=== PATIENT | male | born 1955 | race American Indian/Alaskan Native ===

== ENCOUNTER 2016-04-27 08:55 | Outpatient (CLI) | payer MEDICARE ==
--- NOTE | 2016-04-27 10:51 | Ultrasound Report ---
RIGHT UPPER QUADRANT ULTRASOUND: HISTORY: Right upper quadrant pain. Technique: Transabdominal ultrasound imaging with Doppler interrogation. FINDINGS: There appears to be a small amount of sludge in the gallbladder. No shadowing stones or abnormal dilatation. The CBD measures 5 mm. The liver is poorly imaged secondary to body habitus. No obvious liver parenchymal disease or mass. Images of the pancreas, right kidney and aorta are within normal limits. No perihepatic ascites. IMPRESSION: Small amount of sludge in the gallbladder. No biliary dilatation.
[2016-04-27] MEDS ORDERED: KINEVAC IV ONE (10:57)
[2016-04-27] MEDS ORDERED: WATER FOR INJ (PF) IV SCH (11:00)
--- NOTE | 2016-04-27 13:14 | Nuclear Medicine Report ---
HEPATOBILIARY SCAN: History: Right upper quadrant abdominal pain. Following the injection of the radionuclide, serial scanning was obtained over the right upper quadrant. Initial imaging of the liver demonstrates a relatively normal activity pattern. Progressive concentration of the radionuclide in the bile ducts, with filling of both the gallbladder and small bowel, is identified within a normal time period. The gallbladder ejection fraction is within normal limits measuring 44%. The patient reports original symptoms were reproduced during the infusion of CCK. IMPRESSION: The cystic duct is patent. Normal gallbladder ejection fraction.
== END 2016-04-27 08:56 | disposition home or self-care (01) ==
LOC: US 08:55
PROVIDERS: ATTEND Internal Medicine
DX: R10.11 Right upper quadrant pain (principal)
CPT/HCPCS: 76705; 78227; A9537; J2805

== ENCOUNTER 2016-05-19 10:10 | Outpatient (CLI) | payer MEDICARE ==
--- NOTE | 2016-05-20 10:01 | Cat Scan Report ---
CT OF THE ABDOMEN WITH ORAL CONTRAST: The study was ordered with intravenous contrast, but this was not given due to patient's elevated creatinine of 1.9. HISTORY: Right upper quadrant pain. FINDINGS: The liver, spleen, and gallbladder appear normal. The kidneys are normal in size and configuration. A subcentimeter hypodensity in the upper pole of the left kidney is probably a small cyst. There are no other renal abnormalities. The pancreas is mildly atrophic but otherwise unremarkable. Nonenlarged nodes are seen in the left periaortic region. There are no pelvic masses or abnormal fluid collections. No mesenteric inflammation is seen. There is no evidence of appendicitis. A large volume of stool is seen throughout the colon. IMPRESSION: 1. No acute findings. 2. Probable small left renal cyst. 3. Constipation.
== END 2016-05-19 10:11 | disposition home or self-care (01) ==
LOC: CT 10:10
PROVIDERS: ATTEND Internal Medicine
DX: K59.00 Constipation, unspecified (principal); K86.89 Other specified diseases of pancreas
CPT/HCPCS: 36415; 74176; 82565; 84520

== ENCOUNTER 2016-06-17 09:02 | Day surgery (SDC) | payer MEDICARE ==
[~2016-06-17 09:02] MED LIST: MYDRIACYL ONE; PRED FORTE 1% ONE; TETRACAINE 0.5% OD PRN
[2016-06-17] MEDS: MYDRIACYL OD SCH ×3 (10:05→10:15)
[2016-06-17] MEDS: VIGAMOX OD SCH ×3 (10:05→10:15)
[2016-06-17] MEDS: AK-Dilate OD SCH ×3 (10:05→10:15)
[2016-06-17] MEDS ORDERED: VERSED ONE (10:19)
[2016-06-17] MEDS ORDERED: SUBLIMAZE ONE (10:19)
--- NOTE | 2016-06-17 10:35 | Anesthesia Consultation ---
Anesthesia Consult and Med Hx Date of service: 06/17/16 - Airway Anesthetic Teeth Evaluation: Dentures, Edentulous ROM Head & Neck: Adequate Mental/Hyoid Distance: Adequate Mallampati Class: Class II Intubation Access Assessment: Probably Good - Pulmonary Exam CTA: Yes - Cardiac Exam Cardiac Exam: RRR - Pre-Operative Health Status ASA Pre-Surgery Classification: ASA3 Proposed Anesthetic Plan: MAC - Cardiovascular System Hx Hypertension: Yes - Endocrine Hx Non-Insulin Dependent Diabetes: Yes - Other Systems Hx Cancer: No Hx Obesity: Yes (BMI 33.1)
--- NOTE | 2016-06-17 10:35 | Anesthesia Day of Surgery ---
Anesthesia Day of Surgery - Day of Surgery Patient Examined: Yes Patient H&P Reviewed: Yes Patient is NPO: Yes
[2016-06-17] MEDS ORDERED: DIPRIVAN 10 MG/ML IV ONE (10:54)
[2016-06-17] MEDS ORDERED: WATER FOR IRRIG STERILE IR ONE (11:06)
--- NOTE | 2016-06-17 11:36 | Operative Report ---
Operative Report Operative Report: PATIENT'S NAME: DATE OF : DATE OF SURGERY: 06/17/2016 PREOPERATIVE DIAGNOSIS: Cataract right eye POSTOPERATIVE DIAGNOSIS: Same OPERATIVE PROCEDURE: Phacoemulsification with intraocular lens implantation, right eye SURGEON: Carmen Richter M.D. SUPERVISOR GEAR REPAIR SURGEON: Perry Lens: AO60 16.5 D ANESTHESIA: Monitored anesthesia care in combination with topical and intracameral anesthesia because of the established specific risk of reflux, arrhythmias, or anxiety attacks associated with ocular manipulation, as well as the difficulty of the fireproof door assembler to manage such potentially catastrophic events while simultaneously attempting to complete the surgical procedure and was deemed necessary for the patient's safety to have an Corporate Training Manager present during the procedure whenever possible. An Corporate Training Manager was utilized to regulate the intravenous sedation of the patient so the patient was cooperative yet not asleep in order for the patient to successfully maintain fixation of the eye on the operating light of the microscope. COMPLICATIONS: No surgical complications No blood loss. ALLERGIES: No known drug allergies PROGNOSIS: Excellent INDICATIONS FOR SURGERY: The patient is undergoing surgery in the hopes of eliminating or improving these visual difficulties. PROCEDURE: After arriving at the surgery center, the patient was given topical anesthetic and dilating drops, as noted in the record. The patient was then taken into the operating room and given more anesthetic drops. The eyelids , lashes, and lid margins were scrubbed with Betadine solution, and the patient was draped. The Nurse Corporate Training Manager administered IV sedation and monitored the patient during the procedure. The eye was then fixated with a 0.12, and a stab incision was made in the peripheral clear cornea into the anterior chamber. This was made on my left side. Viscoelastic was next used to fill the anterior chamber. The eye was once again fixated with the 0.12 forceps and a keratome was used make an incision in clear cornea peripherally on my right hand side temporally. The capsule forceps were used to open the central anterior capsule and then make a continuous round capsulotomy. Hydrodissection was carried out utilizing a cannula and balanced salt solution to delineate the cortical material from the capsule and the nucleus from the cortical material. The phaco tip was introduced into the eye and used to remove the anterior cortical material in the area of the capsulotomy. Then the phaco tip was buried into the nucleus, and a chopping instrument was introduced into the eye and used to provide countertraction in the nucleus between this instrument and the phaco tip fracturing the nucleus. This procedure was repeated multiple times, providing multiple small segments of the lens, and then the phaco tip was used to remove each of these segments. An I/A tip was then used to remove the remaining cortex. The anterior chamber was refilled with viscoelastic. An one-piece, acrylic intraocular lens was then placed into an inserting cartridge. The tip of the inserting cartridge was introduced into the keratome incision and into the anterior chamber. The implant was gently advanced through the cartridge and into the eye, where it unfolded, and both haptics were placed in the capsular bag, where it centered nicely and appeared to be well fixated. After placement of the intraocular lens, the I~and~A handpiece was placed back into the eye and used to remove the viscoelastic, including viscoelastic that was behind the optic of the intraocular lens. The anterior chamber was then filled with balanced salt solution, and hydration of the wound was used to cause swelling of the wound and more appropriate watertight closure. When the wound was found to be firm, the patient was asked to comment on how bright the light was. If there was no light perception at all or if the light was substantially dimmer than during the rest of the surgery, the amount of fluid in the eye was decompressed to lower the intraocular pressure until the patient could see the bright light again. This was done to avoid any damage or decreased blood flow to the optic nerve. MEDICATIONS APPLIED AT END OF SURGERY: One drop of Pred Forte and Vigamox The patient was given a shield to wear at night and was instructed not to rub or push on the eye. DISCHARGE SUMMARY: The patient was released in stable condition. The patient and those with the patient were given a written sheet of postoperative instructions and counseling on any abnormal laboratory studies. The patient is to see us tomorrow for follow-up in the office and is to call immediately for any difficulties. Carmen Richter M.D. Date
--- NOTE | 2016-06-17 11:38 | Short Stay Summary ---
Short Stay Documentation Date of service: 06/17/16 - History H&P: obtained from office - Allergies and Medications Current Medications: Allergies No Known Allergies Allergy (Verified 06/16/16 10:42) Home Medications Medication Instructions Recorded Confirmed Last Taken Type Gabapentin [Neurontin] 300 mg PO Q8HR #90 capsule 08/24/15 06/16/16 Unknown Rx AtorvaSTATin [Lipitor] 20 mg PO QHS 01/28/16 06/16/16 Unknown History Ergocalciferol(Vitamin D2)(Nf) 50,000 unit PO QWEEK 01/28/16 06/16/16 Unknown History [Vitamin D (Nf)] Insulin Lispro Prot/Lispro 0 unit SQ QACHS 01/28/16 06/16/16 Unknown History [HumaLOG Mix 75/25 Vial] Tamsulosin [Flomax] 0.4 mg PO QHS 01/28/16 06/16/16 Unknown History Valsartan/Hydrochlorothiazide 1 tab PO QDAY 01/28/16 06/16/16 Unknown History [Diovan Hct 160-12.5 mg] amLODIPine [Norvasc] 5 mg PO DAILY 01/28/16 06/16/16 Unknown History metFORMIN [Glucophage] 1,000 mg PO QDAY 01/28/16 06/16/16 Unknown History hydrALAZINE [Apresoline TAB] 50 mg PO Q8HR #90 tablet 01/31/16 06/16/16 Unknown Rx Clindamycin [Clindamycin CAP] 300 mg PO Q8H #40 cap 03/31/16 06/16/16 Unknown Rx Ibuprofen [Motrin] 600 mg PO Q8H PRN #20 tablet 03/31/16 06/16/16 Unknown Rx Active Medications Moxifloxacin HCl (Vigamox) 1 drops OD Q5MIN BRII Stop: 06/17/16 18:00 Last Admin: 06/17/16 10:15 Dose: 1 drops Phenylephrine HCl (Ak-Dilate) 1 drops OD Q5MIN BRII Stop: 06/19/16 18:00 Last Admin: 06/17/16 10:15 Dose: 1 drops Tetracaine HCl (Tetracaine 0.5%) 1 drops OD Q5M PRN PRN Reason: Analgesia Last Admin: 06/17/16 10:04 Dose: 1 drops Tropicamide (Mydriacyl) 1 drops OD Q5MIN BRII Stop: 06/17/16 18:00 Last Admin: 06/17/16 10:15 Dose: 1 drops - Brief post op/procedure progress note Date of procedure: 06/17/16 Pre-op diagnosis: right cataract Post-op diagnosis: same Procedure: Phacoemulsification with intraocular lens insertion right eye Anesthesia: MAC Surgeon: LUIGI XIAO Estimated blood loss: none Pathology: none Condition: stable - Disposition Condition at discharge: Good Disposition: DISCHARGED TO HOME OR SELFCARE - Discharge Diagnoses (1) Cataract Status: Resolved Short Stay Discharge Plan Follow up with: WADE PRYOR MD [Primary Care Provider] - 7 Days
[2016-06-17 12:51] VITALS: BP 190/94
--- NOTE | 2016-06-17 13:55 | Post Anesthesia Evaluation ---
- Post Anesthesia Evaluation Patient Participated: Yes Airway Patent: Yes Stable Respiratory Function: Yes Nausea/Vomiting: No Temp > 96.8F: Yes Pain Manageable: Yes Adequeate Hydration: Yes Anesthesia Complications: No Block Receding Appropriately: Not Applicable Patient on Ventilator: No
[2016-06-17] MEDS ORDERED: PRED FORTE 1% OU SCH (14:00)
== END 2016-06-17 12:30 | disposition home or self-care (01) ==
LOC: OR 09:02
DX: E11.36 Type 2 diabetes mellitus with diabetic cataract (principal); J44.9 Chronic obstructive pulmonary disease, unspecified; I11.0 Hypertensive heart disease with heart failure; I50.9 Heart failure, unspecified; E66.9 Obesity, unspecified; Z68.33 Body mass index [BMI] 33.0-33.9, adult; Z79.899 Other long term (current) drug therapy; Z79.84 Long term (current) use of oral hypoglycemic drugs; Z86.79 Personal history of other diseases of the circulatory system
CPT/HCPCS: 66984; 82962; J2250; J2704; J3010; V2632

== ENCOUNTER 2016-08-11 15:52 | Emergency (ER) | payer MEDICARE ==
--- NOTE | 2016-08-11 23:03 | Emergency Department Report ---
HPI - General Chief Complaint: Wound/Laceration Time Seen by Provider: 08/11/16 22:08 - HPI HPI: This is a 61-year-old Afro-Citizen Of [place] male presents the emergency department from home with complaint of a chronic diabetic wound to the right foot that going on for "a long time." Patient says that his home health care nurse who usually helps with wound care and dressing changes "quit" and therefore the patient has not had a dressing change and about 3 weeks. He denies any significant discomfort or any bleeding or discharge but does say that it "stinks". He also complains of some swelling to that right lower extremity as well. He has not taken anything for symptoms prior to presentation. His primary care doctor is Dr. Mark Pina but has not seen him recently regarding the symptoms. He has a history of CHF, COPD, diabetes, hypertension. No history of previous DVT. No recent travel or sick contacts at home. ED Past Medical Hx - Past Medical History Hx Hypertension: Yes Hx Congestive Heart Failure: Yes Hx Diabetes: Yes Hx COPD: Yes Hx HIV: No Additional medical history: Elevated cholesterol - Surgical History Additional Surgical History: Right knee surgery after a fracture. left knee surgery - Social History Smoking Status: Never Smoker Substance Use Type: None - Medications Home Medications: Home Medications Medication Instructions Recorded Confirmed Last Taken Type Gabapentin [Neurontin] 300 mg PO Q8HR #90 capsule 08/24/15 06/16/16 Unknown Rx AtorvaSTATin [Lipitor] 20 mg PO QHS 01/28/16 06/16/16 Unknown History Ergocalciferol(Vitamin D2)(Nf) 50,000 unit PO QWEEK 01/28/16 06/16/16 Unknown History [Vitamin D (Nf)] Insulin Lispro Prot/Lispro 0 unit SQ QACHS 01/28/16 06/16/16 Unknown History [HumaLOG Mix 75/25 Vial] Tamsulosin [Flomax] 0.4 mg PO QHS 01/28/16 06/16/16 Unknown History Valsartan/Hydrochlorothiazide 1 tab PO QDAY 01/28/16 06/16/16 Unknown History [Diovan Hct 160-12.5 mg] amLODIPine [Norvasc] 5 mg PO DAILY 01/28/16 06/16/16 Unknown History metFORMIN [Glucophage] 1,000 mg PO QDAY 01/28/16 06/16/16 Unknown History hydrALAZINE [Apresoline TAB] 50 mg PO Q8HR #90 tablet 01/31/16 06/16/16 Unknown Rx Clindamycin [Clindamycin CAP] 300 mg PO Q8H #40 cap 03/31/16 06/16/16 Unknown Rx Ibuprofen [Motrin] 600 mg PO Q8H PRN #20 tablet 03/31/16 06/16/16 Unknown Rx ED Review of Systems ROS: Stated complaint: RT FOOT PAIN Other details as noted in HPI Comment: All other systems reviewed and negative Constitutional: denies: chills, fever Eyes: denies: eye pain, eye discharge, vision change ENT: denies: ear pain, throat pain Respiratory: denies: cough, shortness of breath, wheezing Cardiovascular: denies: chest pain, palpitations Gastrointestinal: denies: abdominal pain, nausea, diarrhea Genitourinary: denies: urgency, dysuria Musculoskeletal: joint swelling, arthralgia Skin: other (chronic wound). denies: pruritus Neurological: denies: headache, weakness, paresthesias Physical Exam - Physical Exam Vital Signs: Vital Signs 08/11/16 17:42 Temperature 98.8 F Pulse Rate 77 Respiratory 19 Rate Blood Pressure 160/82 O2 Sat by Pulse 100 Oximetry Physical Exam: GENERAL: The patient is well-developed well-nourished. HEENT: Normocephalic. Atraumatic. Extraocular motions are intact. Patient has moist mucous membranes. Pupils equal reactive to light bilaterally. NECK: Supple. Trachea is midline. CHEST/LUNGS: Clear to auscultation. There is no respiratory distress noted. HEART/CARDIOVASCULAR: Regular. There is no tachycardia. There is no gallop rub or murmur. ABDOMEN: Abdomen is soft, nontender. Patient has normal bowel sounds. There is no abdominal distention. SKIN: There is nonpitting swelling to the right lower extremity from the knee distally. There appears to be chronic ulcerations to the right lateral posterior foot as well as to the plantar heel. No current bleeding, weeping, purulent drainage. The ulcers appeared to be chronic and/or healing. He has onychomycosis of the toenails. NEURO: The patient is awake, alert, and oriented. The patient is cooperative. The patient has no focal neurologic deficits. The patient has normal speech. MUSCULOSKELETAL: There is no tenderness or deformity. There is no limitation range of motion. There is no evidence of acute injury. Pedal pulses intact. ED Course Vital Signs 08/11/16 17:42 Temperature 98.8 F Pulse Rate 77 Respiratory 19 Rate Blood Pressure 160/82 O2 Sat by Pulse 100 Oximetry ED Medical Decision Making - Lab Data Result diagrams: 08/11/16 23:01 08/11/16 23:01 - Radiology Data Radiology results: image reviewed interpreted by me: X-ray of the right foot does not show any fracture, dislocations or any signs of osteomyelitis. - Medical Decision Making 61-year-old male presents with the need for a dressing change to the right lower extremity where he has had a dressing for the past 3 weeks. Patient has a history of chronic ulcerations to that right lower extremity. X-ray was done that did not show any signs of osteomyelitis. Patient's labs show some abnormalities however. The CBC is okay without any significant leukocytosis or anemia. However the metabolic panel shows hypokalemia with potassium of 5.9 and some hyperglycemia. The plan was going to be to admit the patient to hospital after giving him the hyperkalemia cocktail. The patient also needs a right lower extremity venous Doppler to rule out a DVT with the right lower extremity swelling that was seen. However the patient refuses to be admitted. I spoke to him in great detail and let him know that there is risks involved with leaving with hyperkalemia as well as if the patient has a possible DVT. The patient is AAO 3 and of sound mind and still refuses to be admitted. He also refused IV access for insulin, D50 for treatment of his hyperkalemia. I was unable to convince the patient's stay so I still wrote him for a outpatient venous Doppler and treated him for his hyperkalemia to the best of my ability before allowing him to sign out AGAINST MEDICAL ADVICE. - Differential Diagnosis hyperkalemia, DVT, cellulitis, diabetic ulcer, DKA Critical Care Time: No Critical care attestation.: If time is entered above; I have spent that time in minutes in the direct care of this critically ill patient, excluding procedure time. ED Disposition Clinical Impression: Hyperkalemia, Hyperglycemia Diabetic foot ulcer Qualifiers: Diabetic foot ulcer location: heel Diabetes mellitus type: type 1 Laterality: right Non-pressure ulcer stage: with fat layer exposed Qualified Code(s): E10.621 - Type 1 diabetes mellitus with foot ulcer Hypertension Qualifiers: Hypertension type: essential hypertension Qualified Code(s): I10 - Essential ( primary) hypertension Disposition: LEFT AGAINST MEDICAL ADVICE Is pt being admited?: No Condition: Stable Instructions: Diabetes Mellitus Type 2 in Adults (ED), Hyperkalemia (ED), Hypertension (ED) Additional Instructions: Please return to the emergency department immediately if you change your mind about admission and further treatment. Despite the fact that you are leaving AGAINST MEDICAL ADVICE, I'm giving him an order form to go to outpatient imaging for a right lower extremity venous Doppler to rule out a blood clot. Referrals: MARK PINA MD [Primary Care Provider] - [place] Forms: AMA Form Time of Disposition: 00:31
[2016-08-11 23:12] LABS: Basophils % (Auto) 0.9 % (0.0-1.8); Eosinophils % (Auto) 5.3 % (0.0-4.3); Hematocrit 28.5 % (35.5-45.6); Hemoglobin 9.3 gm/dl (11.8-15.2); Mean Corpuscular HGB Conc 33 % (32-34); Mean Corpuscular Hemoglobin 29 pg (28-32); Mean Corpuscular Volume 89 fl (84-94); Platelet Count 191 K/mm3 (140-440); Red Blood Count 3.19 M/mm3 (3.65-5.03); Red Cell Distribution Width 14.5 % (13.2-15.2); White Blood Count 7.2 K/mm3 (4.5-11.0)
[2016-08-11 23:32] LABS: Anion Gap 18 mmol/L; BUN/Creatinine Ratio 22.14; Blood Urea Nitrogen 31 mg/dL (9-20); Calcium 8.4 mg/dL (8.4-10.2); Carbon Dioxide 17 mmol/L (22-30); Chloride 108.5 mmol/L (98-107); Glucose 223 mg/dL (75-100); Potassium 5.9 mmol/L (3.6-5.0); Sodium 138 mmol/L (137-145)
[2016-08-11] MEDS ORDERED: PROVENTIL IH ONE (23:35)
[2016-08-11] MEDS ORDERED: D50W (25GM) IV ONE (23:35)
[2016-08-11] MEDS ORDERED: KIONEX PO ONE (23:36)
[2016-08-12 01:06] VITALS: BP 177/79
--- NOTE | 2016-08-12 09:55 | XRay Report ---
RIGHT FOOT, 3 VIEWS History: Right foot pain, wound. Findings: Soft tissue ulceration is suspected in the lateral heel region. There are mild osteoarthritic changes throughout the foot but no evidence for fracture, bone lesion or bony destruction. There is mild diffuse soft tissue swelling or edema. No soft tissue gas. Diffuse vascular calcifications are noted consistent with diabetes or peripheral vascular disease. Impression: Soft tissue ulceration as described. No evidence for osteomyelitis. Mild degenerative changes.
== END 2016-08-12 01:36 | disposition left against medical advice (07) ==
LOC: ED 15:52
DX: E11.621 Type 2 diabetes mellitus with foot ulcer (principal); E87.5 Hyperkalemia; E11.65 Type 2 diabetes mellitus with hyperglycemia; I10 Essential (primary) hypertension; I50.9 Heart failure, unspecified; J44.9 Chronic obstructive pulmonary disease, unspecified; E78.00 Pure hypercholesterolemia, unspecified; Z79.4 Long term (current) use of insulin
CPT/HCPCS: 36415; 80048; 83880; 85025; 94640; 96374; 96375; J1815

== ENCOUNTER 2016-09-09 09:54 | Outpatient (CLI) | payer MEDICARE ==
[2016-09-09] MEDS ORDERED: XYLOCAINE TOPICAL 4% TP ONE (12:00)
== END 2016-09-09 09:55 | disposition home or self-care (01) ==
LOC: EDBD → WOUND 09:54
PROVIDERS: ATTEND Nurse Practitioner
DX: E11.621 Type 2 diabetes mellitus with foot ulcer (principal); L97.411 Non-pressure chronic ulcer of right heel and midfoot limited to breakdown of skin; E11.40 Type 2 diabetes mellitus with diabetic neuropathy, unspecified; I10 Essential (primary) hypertension; E11.36 Type 2 diabetes mellitus with diabetic cataract; Z87.891 Personal history of nicotine dependence
CPT/HCPCS: 11042; 82962; G0463; 99212

== ENCOUNTER 2016-09-13 12:45 | Outpatient (CLI) | payer MEDICARE ==
[2016-09-13] MEDS ORDERED: XYLOCAINE TOPICAL 2% ONE (14:02)
[2016-09-13] MEDS ORDERED: XYLOCAINE TOPICAL 2% TP ONE (16:26)
== END 2016-09-13 12:46 | disposition home or self-care (01) ==
LOC: WOUND 12:45
PROVIDERS: ATTEND Internal Medicine
DX: E11.621 Type 2 diabetes mellitus with foot ulcer (principal); L97.411 Non-pressure chronic ulcer of right heel and midfoot limited to breakdown of skin; E11.36 Type 2 diabetes mellitus with diabetic cataract; E11.40 Type 2 diabetes mellitus with diabetic neuropathy, unspecified; I10 Essential (primary) hypertension; Z87.891 Personal history of nicotine dependence
CPT/HCPCS: 99214; G0463

== ENCOUNTER 2016-09-16 10:53 | Outpatient (CLI) | payer MEDICARE ==
[2016-09-16] MEDS ORDERED: XYLOCAINE TOPICAL 4% TP ONE ×2 (11:56→16:03)
== END 2016-09-16 10:54 | disposition home or self-care (01) ==
LOC: WOUND 10:53
PROVIDERS: ATTEND Nurse Practitioner
DX: E11.621 Type 2 diabetes mellitus with foot ulcer (principal); L97.411 Non-pressure chronic ulcer of right heel and midfoot limited to breakdown of skin; E11.36 Type 2 diabetes mellitus with diabetic cataract; E11.40 Type 2 diabetes mellitus with diabetic neuropathy, unspecified; L84 Corns and callosities; B35.1 Tinea unguium; I10 Essential (primary) hypertension; Z87.891 Personal history of nicotine dependence
CPT/HCPCS: 11055; 11719; 82962

== ENCOUNTER 2016-09-23 11:19 | Outpatient (CLI) | payer MEDICARE | END 2016-09-23 11:20 | disposition home or self-care (01) | LOC: WOUND 11:19 | PROVIDERS: ATTEND Nurse Practitioner | DX: E11.621 Type 2 diabetes mellitus with foot ulcer (principal); L97.411 Non-pressure chronic ulcer of right heel and midfoot limited to breakdown of skin; E11.40 Type 2 diabetes mellitus with diabetic neuropathy, unspecified; E11.36 Type 2 diabetes mellitus with diabetic cataract; B35.3 Tinea pedis; L84 Corns and callosities; I10 Essential (primary) hypertension; Z87.891 Personal history of nicotine dependence | CPT/HCPCS: 82962; G0463; 99213 ==

== ENCOUNTER 2016-12-23 09:46 | Outpatient (CLI) | payer MEDICARE ==
[2016-12-23] MEDS ORDERED: XYLOCAINE TOPICAL 4% TP ONE ×2 (10:51→12:06)
[2016-12-23] MEDS ORDERED: THERMAZENE 50 GRAM TP ONE (12:23)
[2016-12-24] MEDS ORDERED: THERMAZENE 50 GRAM TP SCH (10:00)
== END 2016-12-23 09:47 | disposition home or self-care (01) ==
LOC: EDBD → WOUND 09:46
PROVIDERS: ATTEND Nurse Practitioner
DX: I70.234 Atherosclerosis of native arteries of right leg with ulceration of heel and midfoot (principal); E11.621 Type 2 diabetes mellitus with foot ulcer; L97.411 Non-pressure chronic ulcer of right heel and midfoot limited to breakdown of skin; L97.521 Non-pressure chronic ulcer of other part of left foot limited to breakdown of skin; I11.0 Hypertensive heart disease with heart failure; I50.9 Heart failure, unspecified; E87.5 Hyperkalemia; E11.51 Type 2 diabetes mellitus with diabetic peripheral angiopathy without gangrene; E78.5 Hyperlipidemia, unspecified; E11.42 Type 2 diabetes mellitus with diabetic polyneuropathy; J44.9 Chronic obstructive pulmonary disease, unspecified; Z86.718 Personal history of other venous thrombosis and embolism; Z87.891 Personal history of nicotine dependence
CPT/HCPCS: 11042; 11045; 11055; 87075; 87076; 87116; 87186; G0463

== ENCOUNTER 2016-12-30 01:49 | Inpatient (IN) | payer MEDICARE ==
[2016-12-30 02:57] LABS: Eosinophils % (Auto) 4.4 % (0.0-4.3); Hematocrit 28.8 % (35.5-45.6); Hemoglobin 9.3 gm/dl (11.8-15.2); Mean Corpuscular HGB Conc 32 % (32-34); Mean Corpuscular Hemoglobin 28 pg (28-32); Mean Corpuscular Volume 87 fl (84-94); Platelet Count 328 K/mm3 (140-440); Red Blood Count 3.33 M/mm3 (3.65-5.03); Red Cell Distribution Width 13.6 % (13.2-15.2); White Blood Count 8.6 K/mm3 (4.5-11.0)
[2016-12-30 03:05] LABS: Calcium 9.2 mg/dL (8.4-10.2); Chloride 102.5 mmol/L (98-107); Potassium 4.9 mmol/L (3.6-5.0)
[2016-12-30 11:09] LABS: Bilirubin,Urine NEG (Negative); Blood,Urine NEG (Negative); Ketones,Urine NEG (Negative); Leukocyte Esterase,Urine NEG (Negative); Mucus,Urine FEW /HPF; Nitrite,Urine NEG (Negative); Urobilinogen,Urine < 2.0 mg/dL (<2.0)
--- NOTE | 2016-12-30 13:20 | Emergency Department Report ---
ED Extremity Problem HPI - General Chief complaint: Extremity Problem,Nontraumatic Stated complaint: SORES ON LEG Time Seen by Provider: 12/30/16 11:32 Source: patient, old records reviewed Mode of arrival: Wheelchair Limitations: No Limitations - History of Present Illness Initial comments: 61-year-old male with a past medical history of CHF, COPD, DVT, diabetes, hypertension and elevated cholesterol presents to the hospital complaining of "ants biting him on his legs and legs". Patient is a very poor historian and is sleeping intermittently and not providing any further details. Right foot pain rated 8/10 in intensity. Previous medical record review. Patient was admitted here twice this month and left AMA both times. Last admission was December 23 until December 26. As for discharge and outpatient has a chronic right heel diabetic ulcer, diastolic CHF, hyperlipidemia and was omitted for cellulitis. Started on IV antibiotics and was evaluated by infectious disease. He had bilateral venous Doppler is negative for DVT. He received wound care for right foot ulcer and was pending orthopedic surgery consult for possible debridement of infected wound of the right foot. MRI was negative for osteomyelitis. Patient had hyperkalemia as well prior to signing out AGAINST MEDICAL ADVICE. It does not appear to patient was discharged on oral antibiotics Severity scale (0 -10): 8 - Related Data Home Medications Medication Instructions Recorded Confirmed Last Taken AtorvaSTATin [Lipitor] 20 mg PO QHS 01/28/16 12/23/16 1 Day Ago Ergocalciferol(Vitamin D2)(Nf) 50,000 unit PO QWEEK 01/28/16 12/23/16 1 Day Ago [Vitamin D (Nf)] Insulin Lispro Prot/Lispro 0 unit SQ QACHS 01/28/16 12/23/16 1 Day Ago [HumaLOG Mix 75/25 Vial] Tamsulosin [Flomax] 0.4 mg PO QHS 01/28/16 12/23/16 1 Day Ago Valsartan/Hydrochlorothiazide 1 tab PO QDAY 01/28/16 12/23/16 1 Day Ago [Diovan Hct 160-12.5 mg] amLODIPine [Norvasc] 5 mg PO DAILY 01/28/16 12/23/16 1 Day Ago metFORMIN [Glucophage] 1,000 mg PO QDAY 01/28/16 12/23/16 1 Day Ago HumaLOG Mix 75/25 Vial 20 unit SQ BID 12/23/16 12/23/16 Unknown Previous Rx's Medication Instructions Recorded Last Taken Type Gabapentin [Neurontin] 300 mg PO Q8HR #90 capsule 08/24/15 1 Day Ago Rx hydrALAZINE [Apresoline TAB] 50 mg PO Q8HR #90 tablet 01/31/16 1 Day Ago Rx Clindamycin [Clindamycin CAP] 300 mg PO Q8H #40 cap 03/31/16 1 Day Ago Rx Ibuprofen [Motrin] 600 mg PO Q8H PRN #20 tablet 03/31/16 1 Day Ago Rx Allergies Allergy/AdvReac Type Severity Reaction Status Date / Time No Known Allergies Allergy Verified 08/11/16 17:40 ED Review of Systems ROS: Stated complaint: SORES ON LEG Other details as noted in HPI Comment: All other systems reviewed and negative Other: Constitutional: No fevers chills Respiratory: Denies cough wheezing shortness of breath Cardiovascular: Denies chest pain GI: Denies abdominal pain, nausea, vomiting : Denies dysuria Musculoskeletal: Denies back pain Skin: as per hpi Neurologic: Denies headache, numbness, weakness Psychiatric: Denies suicidal ideation, hallucinations ED Past Medical Hx - Past Medical History Previous Medical History?: Yes Hx Hypertension: Yes Hx Congestive Heart Failure: Yes Hx Diabetes: Yes Hx Deep Vein Thrombosis: Yes Hx Renal Disease: No Hx Asthma: No Hx COPD: Yes Hx HIV: No Additional medical history: Elevated cholesterol - Surgical History Past Surgical History?: Yes Additional Surgical History: Right knee surgery after a fracture. left knee surgery - Social History Smoking Status: Never Smoker Substance Use Type: None - Medications Home Medications: Home Medications Medication Instructions Recorded Confirmed Last Taken Type Gabapentin [Neurontin] 300 mg PO Q8HR #90 capsule 08/24/15 12/23/16 1 Day Ago Rx AtorvaSTATin [Lipitor] 20 mg PO QHS 01/28/16 12/23/16 1 Day Ago History Ergocalciferol(Vitamin D2)(Nf) 50,000 unit PO QWEEK 01/28/16 12/23/16 1 Day Ago History [Vitamin D (Nf)] Insulin Lispro Prot/Lispro 0 unit SQ QACHS 01/28/16 12/23/16 1 Day Ago History [HumaLOG Mix 75/25 Vial] Tamsulosin [Flomax] 0.4 mg PO QHS 01/28/16 12/23/16 1 Day Ago History Valsartan/Hydrochlorothiazide 1 tab PO QDAY 01/28/16 12/23/16 1 Day Ago History [Diovan Hct 160-12.5 mg] amLODIPine [Norvasc] 5 mg PO DAILY 01/28/16 12/23/16 1 Day Ago History metFORMIN [Glucophage] 1,000 mg PO QDAY 01/28/16 12/23/16 1 Day Ago History hydrALAZINE [Apresoline TAB] 50 mg PO Q8HR #90 tablet 01/31/16 12/23/16 1 Day Ago Rx Clindamycin [Clindamycin CAP] 300 mg PO Q8H #40 cap 03/31/16 12/23/16 1 Day Ago Rx Ibuprofen [Motrin] 600 mg PO Q8H PRN #20 tablet 03/31/16 12/23/16 1 Day Ago Rx HumaLOG Mix 75/25 Vial 20 unit SQ BID 12/23/16 12/23/16 Unknown History ED Physical Exam - General Limitations: No Limitations - Other Other exam information: General: no acute distress Head exam: Atraumatic, normocephalic Eyes exam: Normal appearance ENT: Moist mucous membrane Neck exam: Normal inspection, full range of motion, no meningismus nontender Respiratory exam: Clear to auscultation bilateral, no wheezes, rales, crackles Cardiovascular: Normal rate and rhythm, normal heart sounds Abdomen: Soft, nondistended, and nontender, with normal bowel sounds, no rebound, or guarding Extremity: Bilateral lower extremity edema with bilateral warmth to distal leg right greater than left see skin exam Back: Normal Inspection, full range of motion, no tenderness Neurologic: Alert, cranial nerves intact, no motor or sensory deficit Psychiatric: normal affect, normal mood Skin: Right heel 7 x 7 cm ulceration. Left foot to by 2 cm ulceration on the plantar surface at the lateral metatarsal ED Course Vital Signs 12/30/16 12/30/16 01:59 09:22 Temperature 98.0 F Pulse Rate 78 67 Respiratory 18 20 Rate Blood Pressure 150/80 Blood Pressure 121/76 [Right] O2 Sat by Pulse 99 Oximetry ED Medical Decision Making - Lab Data Result diagrams: 12/30/16 02:09 12/30/16 02:09 Lab Results 12/30/16 12/30/1612/30/17 Range/Units 02:09 02:09 10:23 WBC 8.6 (4.5-11.0) K/mm3 RBC 3.33 L (3.65-5.03) M/mm3 Hgb 9.3 L (11.8-15.2) gm/dl Hct 28.8 L (35.5-45.6) % MCV 87 (84-94) fl MCH 28 (28-32) pg MCHC 32 (32-34) % RDW 13.6 (13.2-15.2) % Plt Count 328 (140-440) K/mm3 Lymph % (Auto) 26.1 (13.4-35.0) % [place] % (Auto) 11.2 H (0.0-7.3) % Eos % (Auto) 4.4 H (0.0-4.3) % Baso % (Auto) 1.0 (0.0-1.8) % Lymph # 2.2 (1.2-5.4) K/mm3 [place] # 1.0 H (0.0-0.8) K/mm3 Eos # 0.4 (0.0-0.4) K/mm3 Baso # 0.1 (0.0-0.1) K/mm3 Seg Neutrophils % 57.3 (40.0-70.0) % Seg Neutrophils # 4.9 (1.8-7.7) K/mm3 Sodium 137 (137-145) mmol/L Potassium 4.9 (3.6-5.0) mmol/L Chloride 102.5 (98-107) mmol/L Carbon Dioxide 19 L (22-30) mmol/L Anion Gap 20 mmol/L BUN 55 H (9-20) mg/dL Creatinine 2.2 H (0.8-1.5) mg/dL Estimated GFR 37 ml/min BUN/Creatinine Ratio 25.00 % Glucose 183 H (75-100) mg/dL Calcium 9.2 (8.4-10.2) mg/dL Urine Color Yellow (Yellow) Urine Turbidity Clear (Clear) Urine pH 5.0 (5.0-7.0) Ur Specific [place] 1.014 (1.003-1.030) Urine Protein 100 mg/dl (Negative) mg/dL Urine Glucose (UA) Neg (Negative) mg/dL Urine Ketones Neg (Negative) mg/dL Urine Blood Neg (Negative) Urine Nitrite Neg (Negative) Urine Bilirubin Neg (Negative) Urine Urobilinogen < 2.0 (<2.0) mg/dL Ur Leukocyte Esterase Neg (Negative) Urine WBC (Auto) 2.0 (0.0-6.0) /HPF Urine RBC (Auto) 1.0 (0.0-6.0) /HPF U Epithel Cells (Auto) < 1.0 (0-13.0) /HPF Hyaline Casts 2 /LPF Urine Mucus Few /HPF - Medical Decision Making Plan today patient to the hospital and treated for cellulitis clindamycin ordered. It is also possibility that findings may represent chronic venous stasis dermatitis. Patient does have acute renal sufficiency with elevated BUN IV fluids initated at 150ml/hr since patient has a history of CHF. No previous echo available for review to determine EF - Differential Diagnosis cellulitis, chronic ulcer, venous stasis dermatitis, renal insufficiency Critical Care Time: No Critical care attestation.: If time is entered above; I have spent that time in minutes in the direct care of this critically ill patient, excluding procedure time. ED Disposition Clinical Impression: Diabetic infection of right foot, Bilateral leg edema, ARF (acute renal failure ), Anemia Disposition: [id number] OP ADMIT IP TO THIS HOSP Is pt being admited?: Yes Condition: Stable Time of Disposition: 13:28 (Dr Ramos/hosp)
[2016-12-30] MEDS ORDERED: NACL 0.9% 1000 ML 1,000 ML IV ONE (13:26)
[2016-12-30] MEDS ORDERED: CLEOCIN 600 MG/50 mL 600 MG/50 ML BAG IV ONE ×2 (13:27→14:09)
[2016-12-30] MEDS ORDERED: NACL 0.9% 1000 ML 1,000 ML ONE (14:09)
--- NOTE | 2016-12-30 16:23 | History and Physical Report ---
History of Present Illness Date of examination: 12/30/16 Date of admission: 12/30/16 13:29 Chief complaint: CC Rt foot pain 1 mth History of present illness: 61 y/0 AAM with multiple medical problems including HTN DM HLD Vit D def PN CHF comes in for Rt Foot ulcer and severe pain.Patient is a poor historian.was admitted here couple of times and signed out AMA.Rt foot pain is 10 /10.Rt foot ulcer on heel present for 1 mth atleast.Ulcer on the heel [id number].No fever or Chills.Had MRI in past and no evidense of Osteomyelitis. No exacerbating or relieving factors. Past History Past Medical History: COPD, diabetes, heart failure, hypertension, hyperlipidemia, PVD Past Surgical History: Other Social history: Lives alone, smoking, other (Homeless) Medications and Allergies Allergies Allergy/AdvReac Type Severity Reaction Status Date / Time No Known Allergies Allergy Verified 08/11/16 17:40 Home Medications Medication Instructions Recorded Confirmed Last Taken Type Gabapentin [Neurontin] 300 mg PO Q8HR #90 capsule 08/24/15 12/30/16 1 Day Ago Rx AtorvaSTATin [Lipitor] 20 mg PO QHS 01/28/16 12/30/16 1 Day Ago History Ergocalciferol(Vitamin D2)(Nf) 50,000 unit PO QWEEK 01/28/16 12/30/16 1 Day Ago History [Vitamin D (Nf)] amLODIPine [Norvasc] 5 mg PO DAILY 01/28/16 12/30/16 1 Day Ago History metFORMIN [Glucophage] 500 mg PO QDAY 01/28/16 12/30/16 1 Day Ago History Insulin Lispro Prot/Lispro 30 unit SQ BID 12/23/16 12/30/16 Unknown History [HumaLOG Mix 75/25 Vial] Furosemide [Lasix TAB] 20 mg PO QDAY 12/30/16 12/30/16 Unknown History Leucovorin/Pyridox/Mecobalamin 1 tab PO QDAY 12/30/16 12/30/16 Unknown History [Folinic-Plus Caplet] Potassium Chloride [K-Dur] 20 meq PO QDAY 12/30/16 12/30/16 Unknown History Valsartan/Hydrochlorothiazide 1 tab PO QDAY 12/30/16 12/30/16 Unknown History [Valsartan-Hctz 160-12.5 mg Tab] hydrALAZINE [Apresoline TAB] 100 mg PO TID 12/30/16 12/30/16 Unknown History Active Meds: Active Medications Sodium Chloride (Nacl 0.9% 1000 Ml) 1,000 mls @ 150 mls/hr IV BOLUS ONE Stop: 12/30/16 20:05 Last Admin: 12/30/16 14:22 Dose: 150 mls/hr Review of Systems All systems: negative Constitutional: no weight loss, no weight gain, no fever, no chills, no sweats, no night sweats Ears, nose, mouth and throat: no hoarseness, no sore throat Cardiovascular: shortness of breath, dyspnea on exertion, no chest pain, no orthopnea, no palpitations, no rapid/irregular heart beat, no edema, no syncope , no lightheadedness Respiratory: no cough, no cough with sputum, no excessive sputum, no hemoptysis , no shortness of breath, no dyspnea on exertion Gastrointestinal: no abdominal pain, no nausea, no vomiting, no diarrhea, no constipation, no change in bowel habits, no hematemesis, no coffee ground emesis Genitourinary Male: no dysuria, no hematuria, no flank pain, no discharge, no urinary frequency Rectal: no pain Musculoskeletal: no neck stiffness, no neck pain, no shooting arm pain, no arm numbness/tingling, no low back pain, no shooting leg pain, no leg numbness/ tingling, no redness of joints Integumentary: wounds (Rt foot ulcer) Neurological: no head injury, no transient paralysis, no seizures, no syncope Psychiatric: no anxiety, no memory loss, no change in sleep habits, no sleep disturbances Endocrine: no cold intolerance, no heat intolerance, no polyphagia, no excessive thirst, no polydipsia, no polyuria Hematologic/Lymphatic: no easy bruising, no easy bleeding Allergic/Immunologic: no urticaria, no allergic rhinitis, no wheezing Exam - Constitutional Vitals: Temp Pulse Resp BP Pulse Ox 98.4 F 64 20 156/81 99 12/30/16 14:31 12/30/16 14:31 12/30/16 14:31 12/30/16 14:31 12/30/16 01:59 General appearance: Present: no acute distress, well-nourished - EENT Eyes: Present: PERRL ENT: hearing intact, clear oral mucosa - Neck Neck: Present: supple, normal ROM - Respiratory Respiratory effort: normal Respiratory: bilateral: CTA - Cardiovascular Heart rate: 80 Rhythm: regular Heart Sounds: Present: S1 & S2. Absent: rub, click - Extremities Extremities: pulses symmetrical, No edema, abnormal (Rt foot ulcer on Heel [id number] with a depth of 0.5 cm -=volume of 18 cubic cm) Peripheral Pulses: within normal limits - Abdominal General gastrointestinal: Present: soft, non-tender, non-distended, normal bowel sounds Male genitourinary: Present: normal - Integumentary Integumentary: Present: clear, warm, dry - Musculoskeletal Musculoskeletal: gait normal, strength equal bilaterally - Psychiatric Psychiatric: appropriate mood/affect, intact judgment & insight - Neurologic Neurologic: CNII-XII intact, moves all extremities Results - Labs CBC & Chem 7: 12/30/16 02:09 12/30/16 02:09 Labs: Laboratory Last Values WBC 8.6 K/mm3 (4.5-11.0) 12/30/16 02:09 RBC 3.33 M/mm3 (3.65-5.03) L 12/30/16 02:09 Hgb 9.3 gm/dl (11.8-15.2) L 12/30/16 02:09 Hct 28.8 % (35.5-45.6) L 12/30/16 02:09 MCV 87 fl (84-94) 12/30/16 02:09 MCH 28 pg (28-32) 12/30/16 02:09 MCHC 32 % (32-34) 12/30/16 02:09 RDW 13.6 % (13.2-15.2) 12/30/16 02:09 Plt Count 328 K/mm3 (140-440) 12/30/16 02:09 Lymph % (Auto) 26.1 % (13.4-35.0) 12/30/16 02:09 [place] % (Auto) 11.2 % (0.0-7.3) H 12/30/16 02:09 Eos % (Auto) 4.4 % (0.0-4.3) H 12/30/16 02:09 Baso % (Auto) 1.0 % (0.0-1.8) 12/30/16 02:09 Lymph # 2.2 K/mm3 (1.2-5.4) 12/30/16 02:09 [place] # 1.0 K/mm3 (0.0-0.8) H 12/30/16 02:09 Eos # 0.4 K/mm3 (0.0-0.4) 12/30/16 02:09 Baso # 0.1 K/mm3 (0.0-0.1) 12/30/16 02:09 Seg Neutrophils % 57.3 % (40.0-70.0) 12/30/16 02:09 Seg Neutrophils # 4.9 K/mm3 (1.8-7.7) 12/30/16 02:09 Sodium 137 mmol/L (137-145) 12/30/16 02:09 Potassium 4.9 mmol/L (3.6-5.0) 12/30/16 02:09 Chloride 102.5 mmol/L (98-107) 12/30/16 02:09 Carbon Dioxide 19 mmol/L (22-30) L 12/30/16 02:09 Anion Gap 20 mmol/L 12/30/16 02:09 BUN 55 mg/dL (9-20) H 12/30/16 02:09 Creatinine 2.2 mg/dL (0.8-1.5) H 12/30/16 02:09 Estimated GFR 37 ml/min 12/30/16 02:09 BUN/Creatinine Ratio 25.00 % 12/30/16 02:09 Glucose 183 mg/dL (75-100) H 12/30/16 02:09 Calcium 9.2 mg/dL (8.4-10.2) 12/30/16 02:09 Urine Color Yellow (Yellow) 12/30/16 10:23 Urine Turbidity Clear (Clear) 12/30/16 10:23 Urine pH 5.0 (5.0-7.0) 12/30/16 10:23 Ur Specific [place] 1.014 (1.003-1.030) 12/30/16 10:23 Urine Protein 100 mg/dl mg/dL (Negative) 12/30/16 10:23 Urine Glucose (UA) Neg mg/dL (Negative) 12/30/16 10:23 Urine Ketones Neg mg/dL (Negative) 12/30/16 10:23 Urine Blood Neg (Negative) 12/30/16 10:23 Urine Nitrite Neg (Negative) 12/30/16 10:23 Urine Bilirubin Neg (Negative) 12/30/16 10:23 Urine Urobilinogen < 2.0 mg/dL (<2.0) 12/30/16 10:23 Ur Leukocyte Esterase Neg (Negative) 12/30/16 10:23 Urine WBC (Auto) 2.0 /HPF (0.0-6.0) 12/30/16 10:23 Urine RBC (Auto) 1.0 /HPF (0.0-6.0) 12/30/16 10:23 U Epithel Cells (Auto) < 1.0 /HPF (0-13.0) 12/30/16 10:23 Hyaline Casts 2 /LPF 12/30/16 10:23 Urine Mucus Few /HPF 12/30/16 10:23 Assessment and Plan Advance Directives: Yes (Full code) VTE prophylaxis?: Chemical Plan of care discussed with patient/family: Yes - Patient Problems (1) Cellulitis and abscess of foot Current Visit: Yes Status: Acute Plan to address problem: Acute on Chronic Initiated on Unasyn and Vancomycin Wound care consult and wound cultures (2) Diabetic infection of right foot Current Visit: Yes Status: Acute Plan to address problem: Wound care and IV ABX Vascular surgery consulted (3) ARF (acute renal failure) Current Visit: Yes Status: Acute Qualifiers: Acute renal failure type: with acute tubular necrosis Qualified Code(s): N17.0 - Acute kidney failure with tubular necrosis Plan to address problem: IV fluids for now Renal consult (4) IDDM (insulin dependent diabetes mellitus) Current Visit: Yes Status: Acute (5) HTN (hypertension) Current Visit: Yes Status: Acute Qualifiers: Hypertension type: H (6) Peripheral neuropathy Current Visit: Yes Status: Chronic Qualifiers: Peripheral neuropathy type: polyneuropathy, unspecified Qualified Code(s): G62.9 - Polyneuropathy, unspecified (7) PAD (peripheral artery disease) Current Visit: Yes Status: Acute (8) Noncompliance Current Visit: Yes Status: Chronic Plan to address problem: patient to be counselled.In Er patient did no want to talk (9) DVT prophylaxis Current Visit: No Status: Acute Plan to address problem: Lovenox initiated
[2016-12-30] MEDS ORDERED: MILK OF MAGNESIA PO PRN (16:24)
[2016-12-30] MEDS ORDERED: AMBIEN PO PRN (16:24)
[2016-12-30] MEDS ORDERED: DILAUDID IV PRN (16:24)
[2016-12-30] MEDS ORDERED: ZOFRAN IV PRN (16:24)
[2016-12-30] MEDS ORDERED: PERCOCET 5/325 PO PRN (16:24)
[2016-12-30] MEDS ORDERED: DULCOLAX PR PRN (16:24)
[2016-12-30] MEDS ORDERED: TYLENOL PO PRN (16:24)
--- NOTE | 2016-12-30 16:54 | Consultation ---
History of Present Illness - Reason for Consult Consult date: 12/30/16 RLE heel ulcer - History of Present Illness 61-year-old male with a past medical history of CHF, COPD, DVT, diabetes, hypertension and elevated cholesterol presents to the hospital complaining of "ants biting him on his legs and legs". Patient is a very poor historian and is sleeping intermittently and not providing any further details. Right foot pain rated 8/10 in intensity. Previous medical record review. Patient was admitted here twice this month and left AMA both times. Last admission was December 23 until December 26. The patient has a chronic right decubitus ulcer which is chronic only because it has been mentioned on multiple prior reports. The patient provides me no history. The patient is hiding under his jacket, and speaks almost unintelligibly during the encounter. He has a right dorsalis pedis pulse, but is difficult to palpate his posterior tibial pulse. His heel has macerated skin which is partially falling off, but the tissue underneath is granulating. He has Charcot changes of his right foot. Past History Past Medical History: COPD, diabetes, heart failure, hypertension, hyperlipidemia Past Surgical History: No surgical history Social history: other (homeless) Family history: other (noncontributory) Medications and Allergies Allergies Allergy/AdvReac Type Severity Reaction Status Date / Time No Known Allergies Allergy Verified 08/11/16 17:40 Home Medications Medication Instructions Recorded Confirmed Last Taken Type Gabapentin [Neurontin] 300 mg PO Q8HR #90 capsule 08/24/15 12/30/16 1 Day Ago Rx AtorvaSTATin [Lipitor] 20 mg PO QHS 01/28/16 12/30/16 1 Day Ago History Ergocalciferol(Vitamin D2)(Nf) 50,000 unit PO QWEEK 01/28/16 12/30/16 1 Day Ago History [Vitamin D (Nf)] amLODIPine [Norvasc] 5 mg PO DAILY 01/28/16 12/30/16 1 Day Ago History metFORMIN [Glucophage] 500 mg PO QDAY 01/28/16 12/30/16 1 Day Ago History Insulin Lispro Prot/Lispro 30 unit SQ BID 12/23/16 12/30/16 Unknown History [HumaLOG Mix 75/25 Vial] Furosemide [Lasix TAB] 20 mg PO QDAY 12/30/16 12/30/16 Unknown History Leucovorin/Pyridox/Mecobalamin 1 tab PO QDAY 12/30/16 12/30/16 Unknown History [Folinic-Plus Caplet] Potassium Chloride [K-Dur] 20 meq PO QDAY 12/30/16 12/30/16 Unknown History Valsartan/Hydrochlorothiazide 1 tab PO QDAY 12/30/16 12/30/16 Unknown History [Valsartan-Hctz 160-12.5 mg Tab] hydrALAZINE [Apresoline TAB] 100 mg PO TID 12/30/16 12/30/16 Unknown History Active Meds: Active Medications Acetaminophen (Tylenol) 650 mg PO Q4H PRN PRN Reason: Pain MILD(1-3)/Fever >100.5/FRITZ Bisacodyl (Dulcolax) 10 mg MA QDAY PRN PRN Reason: Constipation unrelieved by MOM Famotidine (Pepcid) 20 mg IV BID BRII Hydromorphone HCl (Dilaudid) 0.5 mg IV Q3H PRN PRN Reason: Pain , Severe (7-10) Sodium Chloride (Nacl 0.9% 1000 Ml) 1,000 mls @ 150 mls/hr IV BOLUS ONE Stop: 12/30/16 20:05 Last Admin: 12/30/16 14:22 Dose: 150 mls/hr Ampicillin Sodium/Sulbactam Sodium (Unasyn/Ns 3 Gm/100 Ml) 3 gm in 100 mls @ 100 mls/hr IV Q6HR BRII PRN Reason: Protocol Insulin Aspart (Novolog) 0 units SUB-Q ACHS [facility] PRN Reason: Protocol Magnesium Hydroxide (Milk Of Magnesia) 30 ml PO Q4H PRN PRN Reason: Constipation Ondansetron HCl (Zofran) 4 mg IV Q8H PRN PRN Reason: N/V unrelieved by Reglan Oxycodone/Acetaminophen (Percocet 5/325) 1 tab PO Q6H PRN PRN Reason: Pain, Moderate (4-6) Vancomycin HCl (Vancomycin Pharmacy To Dose) 1 each IV PKCONSULT BRII PRN Reason: Protocol Zolpidem Tartrate (Ambien) 5 mg PO QHS PRN PRN Reason: Insomnia Review of Systems ROS unobtainable: due to mental status (will not answer questions) Exam - Constitutional Vitals: Temp Pulse Resp BP Pulse Ox 98.4 F 64 20 156/81 99 12/30/16 14:31 12/30/16 14:31 12/30/16 14:31 12/30/16 14:31 12/30/16 01:59 General appearance: Present: no acute distress - Respiratory Respiratory effort: normal - Extremities Extremities: abnormal (see history of present illness) - Psychiatric Psychiatric: other (does not respond appropriately) Results - Labs CBC & Chem 7: 12/30/16 02:09 12/30/16 02:09 Assessment and Plan 61-year-old male with diabetes, Charcot changes of the right foot, and right heel ulcer with macerated skin around it. He has a palpable right dorsalis pedis pulse, but the posterior tibial is difficult to palpate. We will obtain arterial studies to confirm adequate flow to the foot. Will need debridement, which may be performed by wound care, as he is neuropathic. He will require a Darco boot for offloading his heel. The patient is homeless, does not respond appropriately to questions, and this makes treating his foot extremely difficult. His right foot has an extremely poor prognosis due to his inability to obtain adequate care and maintain adequate care. He will require follow-up at wound care.
[2016-12-30] MEDS ORDERED: VANCOMYCIN 2,000 MG in NACL 0.9% 500 ML 500 ML IV ONE (17:00)
[2016-12-30] MEDS ORDERED: VANCOMYCIN PHARMACY TO DOSE IV SCH (17:00)
[2016-12-30] MEDS: NOVOLOG SUB-Q SCH ×2 (17:38→22:58)
[2016-12-30] MEDS: PEPCID IV SCH (21:51)
[2016-12-31] MEDS: UNASYN/NS 3 GM/100 ML 3 GM/100 ML BAG IV SCH ×4 (00:13→14:32)
[2016-12-31 00:25] VITALS: BP 153/70
[2016-12-31] MEDS: NOVOLOG SUB-Q SCH ×2 (09:14→14:31)
[2016-12-31] MEDS: PEPCID IV SCH (09:14)
--- NOTE | 2016-12-31 12:13 | Event Note ---
Date: 12/31/16 Awaiting arterial duplex. Not performed yet. Further recommendations once arterial duplex performed.
[2016-12-31] MEDS ORDERED: VANCOMYCIN 1,750 MG in NACL 0.9% 500 ML 500 ML IV SCH (17:00)
--- NOTE | 2017-01-01 12:25 | Discharge Summary ---
Providers - Providers Date of Admission: 12/30/16 13:29 Date of discharge: 12/31/16 Attending physician: MARILEE MORALES 12/30/16 Consult to Case Management [CONS] Routine Services Needed at Discharge: Home Health Services Miter Operator Notified:: sw 12/30/16 16:24 Consult to Physician [CONS] Routine Consulting Provider: FARHEEN MARINO Reason For Exam: PAD Place consult to:: dr. marino Notified:: overhead page Was contact made?: Yes If yes, spoke with:: cee in recyclable materials collector Time called:: 10:37 12/30/16 16:25 Consult to Dietitian/Nutrition [CONS] Routine Physician Instructions: Reason For Exam: Reason for Consult: Diet education 12/30/16 17:06 Consult to Wound/ET Nurse [CONS] Routine Reason For Exam: debridement right heel, neuropathic 12/30/16 20:09 Consult to Wound/ET Nurse [CONS] Routine Reason For Exam: wound eval Primary care physician: WADE PRYOR Hospitalization Condition: Stable Hospital course: 61 y/0 AAM with multiple medical problems including HTN DM HLD Vit D def PN CHF came in for Rt Foot ulcer and severe pain. Patient is a poor historian and was admitted here couple of times and signed out AMA. Rt foot pain and ulcer on heel present for 1 month at least. Ulcer on the heel [id number]. Had MRI in past and no evidense of Osteomyelitis. Vascular was consulted and recommended arterial doppler, but patient refused and signed out AMA. Discharge Diagnosis: (1) Cellulitis and abscess of foot Current Visit: Yes Status: Acute (2) Diabetic infection of right foot Current Visit: Yes Status: Acute (3) ARF (acute renal failure) Current Visit: Yes Status: Acute (4) IDDM (insulin dependent diabetes mellitus) Current Visit: Yes Status: Acute (5) HTN (hypertension) Current Visit: Yes Status: Acute Qualifiers: Hypertension type: H (6) Peripheral neuropathy Current Visit: Yes Status: Chronic Qualifiers: Peripheral neuropathy type: polyneuropathy, unspecified Qualified Code(s): G62.9 - Polyneuropathy, unspecified (7) PAD (peripheral artery disease) Current Visit: Yes Status: Acute (8) Noncompliance Current Visit: Yes Status: Chronic Disposition: DC- LEFT AGAINST MED ADVICE Core Measure Documentation - Palliative Care Palliative Care/ Comfort Measures: Not Applicable - Core Measures Any of the following diagnoses?: history only Exam - Constitutional Vitals: Temp Pulse Resp BP Pulse Ox 99.1 F 64 22 153/70 99 12/31/16 00:24 12/30/16 14:31 12/31/16 00:24 12/31/16 00:24 12/30/16 01:59 Plan Follow up with: WADE PRYOR MD [Primary Care Provider] - 3-5 Days
--- NOTE | 2017-01-01 12:31 | Progress Note ---
Assessment and Plan (1) Cellulitis and abscess of foot Current Visit: Yes Status: Acute Plan to address problem: Acute on Chronic Initiated on Unasyn and Vancomycin Wound care consulted and follow wound cultures (2) Diabetic infection of right foot Current Visit: Yes Status: Acute Plan to address problem: Wound care and IV ABX Vascular surgery consulted and ordered arterial doppler (3) ARF (acute renal failure) Current Visit: Yes Status: Acute Qualifiers: Acute renal failure type: with acute tubular necrosis Qualified Code(s): N17.0 - Acute kidney failure with tubular necrosis Plan to address problem: IV fluids for now will follow Renal recommendation (4) IDDM (insulin dependent diabetes mellitus) Current Visit: Yes Status: Acute ADA diet with SSI coverage (5) HTN (hypertension) Current Visit: Yes Status: Acute Qualifiers: Hypertension type: H resume home meds (6) Peripheral neuropathy Current Visit: Yes Status: Chronic Qualifiers: Peripheral neuropathy type: polyneuropathy, unspecified Qualified Code(s): G62.9 - Polyneuropathy, unspecified Will add gabapentin, likely from uncontrolled DM (7) PAD (peripheral artery disease) Current Visit: Yes Status: Acute will follow arterial doppler result (8) Noncompliance Current Visit: Yes Status: Chronic Plan to address problem: patient counselled but no sure he will follow recommendation. (9) DVT prophylaxis Current Visit: No Status: Acute Plan to address problem: Lovenox initiated, will change to heparin Subjective Date of service: 12/31/16 Interval history: Pt seen and examined plan to have arterial doppler today Objective - Constitutional General appearance: Present: no acute distress, well-nourished - EENT Eyes: PERRL, EOM intact ENT: hearing intact, clear oral mucosa Ears: bilateral: normal - Neck Neck: supple, normal ROM - Respiratory Respiratory effort: normal Respiratory: bilateral: CTA - Cardiovascular Rhythm: regular Heart Sounds: Present: S1 & S2. Absent: gallop, rub Extremity abnormal: other (He has a right dorsalis pedis pulse, but is difficult to palpate his posterior tibial pulse. His heel has macerated skin which is partially falling off, but the tissue underneath is granulating. 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
== END 2016-12-31 15:30 | disposition left against medical advice (07) | DRG 602 ==
LOC: ED 01:49 → 3A 13:29
PROVIDERS: ADMIT Internal Medicine; ATTEND Internal Medicine
DX: L03.115 Cellulitis of right lower limb (principal); N17.0 Acute kidney failure with tubular necrosis; L02.611 Cutaneous abscess of right foot; I50.30 Unspecified diastolic (congestive) heart failure; D64.9 Anemia, unspecified; E11.621 Type 2 diabetes mellitus with foot ulcer; I73.9 Peripheral vascular disease, unspecified; E78.5 Hyperlipidemia, unspecified; I11.0 Hypertensive heart disease with heart failure; J44.9 Chronic obstructive pulmonary disease, unspecified; E11.42 Type 2 diabetes mellitus with diabetic polyneuropathy; Z79.4 Long term (current) use of insulin; Z91.19 Patient's noncompliance with other medical treatment and regimen; Z79.899 Other long term (current) drug therapy; Z86.718 Personal history of other venous thrombosis and embolism
CPT/HCPCS: 36415; 80048; 81001; 82962; 83036; 85025; 96365; J0295; J1815; J3370; J7030; J7040